=== PATIENT | female | born 1945 | race Caucasian/White ===

== ENCOUNTER 2017-12-20 14:38 | Emergency (ER) | payer MEDICARE, BC, SELFPAY ==
[2017-12-20 14:39] VITALS: BP 161/64; PULSE 99; RESP 22; TEMP 36.2; O2SAT 96; BMI 37.2
[2017-12-20 14:49] VITALS: BP 133/51; PULSE 91; RESP 16; O2SAT 95
[2017-12-20 14:51] VITALS: O2SAT 95
--- NOTE | 2017-12-20 15:17 | EKG12_ITS ---
Test Reason : SOB Blood Pressure : / mmHG Vent. Rate : 092 BPM Atrial Rate : 092 BPM P-R Int : 134 ms QRS Dur : 088 ms QT Int : 358 ms P-R-T Axes : 063 053 080 degrees QTc Int : 442 ms Normal sinus rhythm Possible Left atrial enlargement Borderline ECG Confirmed by LIDYA MARTIN, ESTRADA ([id number]), writer editor OMARI JUAREZ ([id number]) on 12/22/2017 3:13:57 PM Referred By: CARLOS Confirmed By:ESTRADA BOSE MD
--- NOTE | 2017-12-20 15:21 | ED.VISSUMM ---
- ER Visit Summary Date of Service: 12/20/17 Chief Complaint: Shortness of breath, weakness History of Present Illness: The patient is a 72 F reports 2-day history of generalized weakness and shortness of breath. She denies cough or congestion. She denies chest pain. She states she was up to urinate 6 times last night but denies dysuria. She does feel some abdominal bloating. She has small bowel movement this morning. She is complaining of headache. Patient recently was on a course of prednisone for knee swelling. She did do a taper off the medication. She was also recently on antibiotic for a kidney infection. Patient does not member the medication she was on. Patient is known to have history of hypothyroidism and states her thyroid meds were recently increased. Physical Examination: Blood pressure is 133/51, temperature 97.1, heart rate 91, respiratory rate 16, pulse ox 95% on room air. Patient is lying in bed with her eyes closed. She opens her eyes to voice. She is in no acute distress and speaking full sentences. Heart is regular rate and rhythm. Lung sounds are clear. Abdomen is soft and nontender. Active bowel sounds are noted. Neuro exam reveals no focal deficits. Test Results: CBC was a white count of 17.0 but differential is normal. This may be secondary to her recent steroids. Chemistry studies reveal BUN 27 and creatinine 1.27. Urinalysis shows 5-10 white cells with 2+ bacteria. TSH is normal. Troponin is less than 0.015. Two-view chest x-ray is no acute findings. Emergency Department Course and Treatment: Patient was given IV fluids, Zofran, and a small dose of Toradol. Patient was able to ambulate to the restroom and back without difficulty. I did explain to her that she does have epithelial cells in her urine sample, however she did have urinary frequency last night and has findings concerning for cystitis. She recently completed antibiotics for a kidney infection but cannot tell me what antibiotic she was on. She will be treated with 5-day course of Macrobid and urine culture has been sent. Treatment Plan: [] Disposition: Discharge Impression: Cystitis This note was generated with [employer] dictation software. It may contain incorrect words, spelling, and punctuation that were not noted in review of the chart prior to signing ED Disposition - Plan for ED Patient: Disposition: Home or Assisted Living Chief Complaint: Shortness of Breath Instructions: ED UTI Cystitis Female Prescriptions: Nitrofurantoin Macrocrystals [Macrobid] 100 mg PO Q12 #10 capsule Referrals: Artur Steven MD [Primary Care Provider] - Keep Winter appointment
[2017-12-20] MEDS: 0.9% Normal Saline 1,000 ML 150 ML IV (15:32)
[2017-12-20] MEDS: Ketorolac 15 MG/ML Vial IV (15:32)
[2017-12-20] MEDS: Ondansetron 4 MG/2 ML Vial IV (15:32)
--- NOTE | 2017-12-20 15:40 | RAD_ITS ---
STUDY: X-RAY CHEST REASON FOR EXAM: Female, 72 years old. Shortness of breath with weakness TECHNIQUE: PA and lateral views of the chest. COMPARISON: 11/06/2009 FINDINGS: The lungs are clear and expanded. There is no demonstrated pleural abnormality. Sternal cerclage wires are present from a prior sternotomy. Mild cardiomegaly. Artificial heart valve. Normal mediastinum and elzbieta. Normal visualized pulmonary arteries. There is atherosclerotic calcification of the aortic arch with tortuosity. Normal visualized thoracic spine. Normal visualized ribs, clavicles, and shoulders. There is no demonstrated abnormality of the visualized soft tissue structures of the upper abdomen. RAD/Chest PA and Lateral IMPRESSION: No acute findings Electronically Signed: Nik Covarrubias DO at 16:26 EDT Tel , Service support ,
[2017-12-20 15:48] LABS: Absolute Lymphocyte Count 4.13 X10^3/ul (0.83-4.51); Basophil# 0.02 X10^3/uL; Basophil% 0.1 % (0-1); Eosinophil# 0.14 X10^3/uL; Eosinophils% 0.8 % (0-5); Hematocrit 42.8 % (37-47); Hemoglobin 13.6 g/dl (12.0-15.0); Lymphocyte # 4.13 X10^3/ul (4.0); Lymphocyte % 24.3 % (19-41); Mean Corp Hgb Conc 31.8 g/gl (32-36); Mean Corpuscular Hgb 29.5 pg (27.0-32.0); Mean Corpuscular Volume 92.8 fL (81-99); Mean Platelet Vol. 10.4 fl (6.2-12.0); Monocyte# 1.65 X10^3/uL; Monocyte% 9.7 % (0-10); Neutrophil # 10.96 X10^3/uL (2.7-7.7); Neutrophil % 64.5 % (47-70); Platelet Count 184 K/mm3 (150-450); RBC Distribution Width CV 14.6 % (11.6-14.6); RBC Distribution Width SD 49.1 fl (35.1-43.9); Red Blood Count 4.61 M/mm3 (4.2-5.4)
[2017-12-20 15:50] LABS: Differential Indicated SCAN CRITERIA MET; POSITIVE COUNT NO; POSITIVE DIFFERENTIAL YES; POSITIVE MORPHOLOGY YES
[2017-12-20 16:07] LABS: Anion Gap 5 (5-15); BUN 27 mg/dL (7-18); BUN/Creat Ratio 21.3 RATIO (10-20); Calcium,Total 8.1 mg/dL (8.5-10.1); Chloride 108 mmol/L (98-107); Creatinine, Serum 1.27 mg/dL (0.55-1.02); EST Glomerular Filtration Rate 44 mL/min (>60); Est Glom Filt Rate - Afr Amer 53 mL/min (>60); Estimated Creatinine Clearance 36.93 ml/min; Glucose 115 mg/dL (74-106); Potassium 3.6 mmol/L (3.5-5.1); Sodium Level 141 mmol/L (136-145); Thyroid Stim Hormone (TSH) 2.92 uIU/mL (0.358-3.74)
[2017-12-20 16:28] LABS: Differential Comment SCANNED
[2017-12-20 17:02] VITALS: BP 153/71; PULSE 76; RESP 15; O2SAT 97
[2017-12-20 17:38] LABS: Color, Urine Yellow (Yellow); Glucose, Dipstick Normal (Normal); Ketone-Dipstick 5 mg/dl (Negative); Leukocyte Esterase-Dipstick 100 /ul (Negative); Nitrite-Dipstick Negative (Negative); Occult Blood-Urine 10 /ul (Negative); Protein-Dipstick 30 mg/dl (Negative); Specific Gravity, Urine 1.025 (1.002-1.030); Urine Clarity Clear (Clear); Urine Urobilinogen 4 mg/dl (Normal)
[2017-12-20 17:39] LABS: Urine Bilirubin Dipstick 1 mg/dL (Negative)
[2017-12-20 17:46] LABS: Bacteria 2+ /hpf (None Seen); Mucous, Urine 3+ /hpf (<or=2+); Red Blood Cells-Urine 0-5 SEEN /hpf (0-5); Squamous Epithelial Cells - UA 5-10 SEEN /hpf (5-10); White Blood Cells 5-10 SEEN /hpf (0-5)
--- NOTE | 2017-12-20 18:37 | ED.DEP ---
ED Disposition - Plan for ED Patient: Disposition: Home or Assisted Living Chief Complaint: Shortness of Breath Instructions: ED UTI Cystitis Female Prescriptions: Nitrofurantoin Macrocrystals [Macrobid] 100 mg PO Q12 #10 capsule Referrals: Artur Steven MD [Primary Care Provider] - Keep Winter appointment
[2017-12-20] MEDS: Nitrofurantoin Macrocrystals 100 MG Capsule PO (18:44)
--- NOTE | 2017-12-23 10:52 | CM.ED ---
ED CALLBACK: Follow-up call placed to patient. Patient states she is feeling better than the other day, but that my whole body just hurts and I'm so weak. Patient states she did see Dr. Steven on Friday. She tells me that he asked her to call him on Friday if she's not feeling improvement. Patient states she is taking her medication and resting. She denies any further questions or needs at this time. I encouraged patient to follow-up with Dr. Steven if no further improvement. Patient states understanding.
[2017-12-23 13:27] LABS: Pathologist Review Reviewed
== END 2017-12-20 18:45 | disposition home or self-care (01) ==
PROVIDERS: Emergency Provider Emergency Medicine; Family Provider Family Medicine; PCP Family Medicine
DX: N30.90 Cystitis, unspecified without hematuria (principal); I10 Essential (primary) hypertension; E03.9 Hypothyroidism, unspecified; R06.00 Dyspnea, unspecified; Z79.82 Long term (current) use of aspirin; Z79.899 Other long term (current) drug therapy
CPT/HCPCS: 71046; 80048; 81001; 84443; 84484; 85025; 93005; 96361; 96374; 96375; 99283; J7030; A4216; J2405

== ENCOUNTER 2019-03-15 15:51 | Outpatient (RCR) | payer SELFPAY ==
[2019-02-25 16:07] VITALS: BMI 37.2
== END 2019-03-23 23:59 ==
LOC: NS 15:51
PROVIDERS: Family Provider Family Medicine; PCP Family Medicine; Visit Provider Family Medicine
DX: Z71.3 Dietary counseling and surveillance (principal); E66.9 Obesity, unspecified; Z68.36 Body mass index [BMI] 36.0-36.9, adult
CPT/HCPCS: 97802

== ENCOUNTER 2019-04-13 11:30 | Outpatient (RCR) | payer SELFPAY ==
[2019-02-25 16:07] VITALS: BMI 37.2
== END 2019-04-23 23:59 ==
LOC: NS 11:30
PROVIDERS: Family Provider Family Medicine; PCP Family Medicine; Visit Provider Family Medicine
DX: Z71.3 Dietary counseling and surveillance (principal); E66.9 Obesity, unspecified; Z68.36 Body mass index [BMI] 36.0-36.9, adult
CPT/HCPCS: 97803

== ENCOUNTER 2019-05-18 15:00 | Outpatient (RCR) | payer SELFPAY ==
[2019-02-25 16:07] VITALS: BMI 37.2
== END 2019-05-22 23:59 ==
LOC: NS 15:00
PROVIDERS: Family Provider Family Medicine; PCP Family Medicine; Visit Provider Family Medicine
DX: Z71.3 Dietary counseling and surveillance (principal); E66.9 Obesity, unspecified; Z68.36 Body mass index [BMI] 36.0-36.9, adult
CPT/HCPCS: 97803

== ENCOUNTER 2019-06-15 13:30 | Outpatient (RCR) | payer SELFPAY ==
[2019-02-25 16:07] VITALS: BMI 37.2
== END 2019-06-22 23:59 ==
LOC: NS 13:30
PROVIDERS: Family Provider Family Medicine; PCP Family Medicine; Visit Provider Family Medicine
DX: Z71.3 Dietary counseling and surveillance (principal); E66.9 Obesity, unspecified; Z68.36 Body mass index [BMI] 36.0-36.9, adult
CPT/HCPCS: 97803

== ENCOUNTER 2019-07-14 11:00 | Outpatient (RCR) | payer SELFPAY ==
[2019-02-25 16:07] VITALS: BMI 37.2
== END 2019-07-22 23:59 ==
LOC: NS 11:00
PROVIDERS: Family Provider Family Medicine; PCP Family Medicine; Visit Provider Family Medicine
DX: Z71.3 Dietary counseling and surveillance (principal); E66.9 Obesity, unspecified; Z68.36 Body mass index [BMI] 36.0-36.9, adult
CPT/HCPCS: 97803

== ENCOUNTER 2019-08-04 11:10 | Outpatient (RCR) | payer SELFPAY ==
[2019-02-25 16:07] VITALS: BMI 37.2
== END 2019-08-04 23:59 | disposition home or self-care (01) ==
LOC: NS 11:10
PROVIDERS: Family Provider Family Medicine; PCP Family Medicine; Visit Provider Family Medicine
DX: Z71.3 Dietary counseling and surveillance (principal); E66.9 Obesity, unspecified; Z68.36 Body mass index [BMI] 36.0-36.9, adult
CPT/HCPCS: 97803

== ENCOUNTER 2022-05-11 19:10 | Inpatient (IN) | payer MEDICARE, BC, SELFPAY ==
[2022-05-11] VITALS (8 sets, daily range): BP systolic 109–143; BP diastolic 54–89; PULSE 66–77; RESP 17–22; TEMP 36–36.7; O2SAT 96–100; BMI 37.0
--- NOTE | 2022-05-11 19:44 | EKG12_ITS ---
Test Reason : CP Blood Pressure : / mmHG Vent. Rate : 077 BPM Atrial Rate : 077 BPM P-R Int : 140 ms QRS Dur : 090 ms QT Int : 390 ms P-R-T Axes : 053 007 080 degrees QTc Int : 441 ms Normal sinus rhythm Normal ECG Confirmed by ANGELA MARTIN, DARLENE ([id number]), online content editor ASAD AGUILAR ([id number]) on 05/13/2022 2:02:27 PM Referred By: KENNY/СЕРГЕЙ Confirmed By:DARLENE MILLER MD
[2022-05-11] MEDS: Aspirin 81 MG TAB.CHEW 324 MG PO (20:01)
--- NOTE | 2022-05-11 20:02 | ED.RN ---
PER DR. CXO, DECREASE ASPIRIN DOSE TO 243 MG DUE TO PT TAKING 81 MG ASPIRIN DAILY IN THE MORNING.
[2022-05-11 20:20] LABS: Absolute Lymphocyte Count 6.58 X10^3/uL (0.83-4.51); Absolute Neutrophil Count 7.2 X10^3/uL (2.0-7.7); Basophil# 0.09 X10^3/uL; Basophil% 0.6 % (0-1); Eosinophil# 0.19 X10^3/uL; Eosinophils% 1.3 % (0-5); Hematocrit 37.6 % (37-47); Hemoglobin 11.9 g/dL (12.0-15.0); Lymphocyte # 6.58 X10^3/ul (0.83-4.51); Lymphocyte % 44.3 % (19-41); Mean Corp Hgb Conc 31.6 g/dL (32-36); Mean Corpuscular Hgb 28.1 pg (27.0-32.0); Mean Corpuscular Volume 88.7 fL (81-99); Mean Platelet Vol. 10.9 fl (6.2-12.0); Monocyte# 0.77 X10^3/uL; Monocyte% 5.2 % (0-10); NRBC Flagged by Analyzer 0 % (0-5); Neutrophil # 7.18 X10^3/uL (2.7-7.7); Neutrophil % 48.3 % (47-70); POSITIVE DIFFERENTIAL YES; POSITIVE MORPHOLOGY YES; Platelet Count 264 K/mm3 (150-450); RBC Distribution Width CV 13.8 % (11.6-14.6); RBC Distribution Width SD 44.5 fl (35.1-43.9); Red Blood Count 4.24 M/mm3 (4.2-5.4); White Blood Count 14.9 K/mm3 (4.4-11.0)
[2022-05-11 20:40] LABS: Anion Gap 9 (5-15); BUN 27 mg/dL (7-18); BUN/Creat Ratio 18.9 RATIO (10-20); Calcium,Total 9.4 mg/dL (8.5-10.1); Chloride 108 mmol/L (98-107); Creatinine, Serum 1.43 mg/dL (0.55-1.02); Differential Indicated SCAN CRITERIA MET; EST Glomerular Filtration Rate 38 mL/min (>60); Est Glom Filt Rate - Afr Amer 46 mL/min (>60); Estimated Creatinine Clearance 30.84 ml/min; Glucose 133 mg/dL (74-106); Potassium 3.8 mmol/L (3.5-5.1); Sodium Level 140 mmol/L (136-145); Troponin-I HS (w/2H Reflex) 7 pg/mL (3.0-54.0)
[2022-05-11 20:50] LABS: Differential Comment SCANNED; Reactive Lymphocyte RARE
--- NOTE | 2022-05-11 21:20 | ED.VIS.CHEST ---
HPI History of Present Illness Chief Complaint: Chest Pain Informant: patient Onset/Context/Timing Onset: Today and Hours (1) Activity at onset: sudden Timing: Continuous Quality: Positive for Heaviness Location: Substernal, Right Parasternal, Left Parasternal, Right Chest and Left Chest Worsened By: Nothing Relieved By: NTG Associated Symptoms: Positive for Diaphoresis, Dyspnea and Lightheadedness; Negative for Nausea, Vomiting, Cough, Fever, Acid Reflux or Palpitations Narrative Narrative: Patient presents with chest pain that began approximately 1 hour prior to arrival. Patient states she was shopping at [employer] when the pain began. Patient states she was just walking when the pain began. Patient describes it as a heaviness. Patient states it got worse when she went to check out. Patient took 1 sublingual nitroglycerin which helped. Patient states nothing makes it worse. Patient admits to some shortness of breath and diaphoresis with the pain. Patient also admits to some lightheadedness. Patient states the pain was diffuse across her chest. Patient denies any fevers or chills. Patient states the pain does radiate into her neck and back. Patient also admits to a mild headache. CVD Risk Factors: Positive for Hypertension and Family History 1' </=55; Negative for Diabetes, Hypercholesterolemia or Smoking PE Risk Factors: Positive for Recent Travel/Surgery; Negative for Recent Immobilization, Prior DVT or PE, Cancer or OCP + Smoking + >/=35 [facility] Medical History Arthritis Heart disease Hypertension Hyperthyroidism Hypothyroidism Home Medications aspirin 81 mg chewable tablet 81 mg PO DAILY@0800 12/27/13 [History Last Taken 12/28/13] levothyroxine 75 mcg tablet 75 mcg PO DAILY 12/27/13 [History Last Taken 05/02/15 05:00] metoprolol tartrate 25 mg tablet 25 mg PO DAILY 12/27/13 [History Last Taken 05/02/15 05:00] nitrofurantoin monohydrate/macrocrystals 100 mg capsule 100 mg PO Q12 ##10 12/20/17 [Rx Last Taken Unknown] amlodipine 5 mg tablet 5 mg PO DAILY 05/11/22 [History Last Taken Unknown] gabapentin 100 mg capsule 100 mg PO DAILY 05/11/22 [History Last Taken Unknown] omeprazole 20 mg capsule,delayed release 20 mg PO DAILY 05/11/22 [History Last Taken Unknown] Allergy/AdvReac Type Severity Reaction Status Date / Time amoxicillin [Amoxicillin] Allergy Unknown Verified 12/20/17 14:39 codeine Allergy Nausea Verified 12/20/17 14:39 Penicillins Allergy Hives Verified 12/20/17 14:39 Family History Other Thyroid disorder Surgical History History of cholecystectomy History of hysterectomy Status post transcatheter aortic valve replacement Social History Smoking Status: Never smoker alcohol intake: never substance use type: does not use what type of physical activity do you participate in: walking frequency: 1-2 times per week ROS ROS ED Constitutional Constitutional ED: Denies chills or fever(s) Eyes Eyes: Denies blurry vision or change in vision ENT ENT ED: Denies rhinorrhea or sore throat Cardiovascular Cardiovascular: Reports chest pain; Denies palpitations Respiratory/Chest Respiratory/Chest: Reports dyspnea; Denies cough Gastrointestinal Gastrointestinal: Denies abdominal pain, nausea or vomiting Genitourinary Genitourinary ED: Denies dysuria or hematuria Musculoskeletal Musculoskeletal: Reports back pain and neck pain Integumentary Denies abscess or rash Neurologic Neurologic: Reports headache(s); Denies weakness Allergic/Immunologic Allergic/Immunologic ED: Denies mouth swelling or urticaria EXAM Physical Exam Const Vital Signs: 05/11/22 19:11 05/11/22 19:14 05/11/22 19:14 Temperature 96.8 F L Temperature Source Temporal Pulse Rate 77 Respiratory Rate 18 Respiratory Effort Normal Non-Labored Blood Pressure 124/68 H Blood Pressure Mean 86 Pulse Ox 96 Oxygen Delivery Method Room Air 05/11/22 19:53 05/11/22 20:15 05/11/22 21:30 Temperature Temperature Source Pulse Rate 71 73 66 Respiratory Rate 21 H 18 22 H Respiratory Effort Blood Pressure 128/57 H 109/54 L 119/61 Blood Pressure Mean 80 72 80 Pulse Ox 98 97 97 Oxygen Delivery Method Room Air Room Air Room Air 05/11/22 22:06 Temperature Temperature Source Pulse Rate 72 Respiratory Rate 20 H Respiratory Effort Blood Pressure 129/57 H Blood Pressure Mean 81 Pulse Ox 98 Oxygen Delivery Method Room Air Positive well nourished, well developed and obese General Appearance ED: well developed and NAD Nutritional Appearance: obese HEENT normocephalic and atraumatic Eyes PERRL and EOMs intact bilaterally Neck supple and no JVD Chest Wall palpation of chest normal Resp normal respiratory effort and clear to auscultation bilaterally Effort and Inspection: Negative for respiratory distress Cardio regular rate and regular rhythm GI normal to inspection, nondistended, normoactive bowel sounds, soft to palpation, non-tender and non-distended Extremity normal to inspection General Extremety ED: Negative for edema or tenderness General Extremity: Negative for edema Neuro oriented x3, CN's II-XII intact bilaterally and no sensory deficits noted Sensorium / Orientation: awake and alert Motor Exam: strength 5/5 throughout Psych mental status grossly normal Heart Score History: Moderately Suspicious ECG: Normal Age: >/= 65 years Risk Factors: 1 or 2 Risk Factors Troponin: </= Normal Limit Score: 4 MDM MDM MDM Narrative Medical decision making narrative: Differential diagnosis includes cardiac ischemia, cardiac dysrhythmia, pneumonia, pneumothorax, pulmonary embolism, aortic dissection, and musculoskeletal chest pain. EKG will be obtained to assess for cardiac ischemia and cardiac dysrhythmia. CTA of the chest will be obtained to assess for pulmonary embolism and aortic dissection. CBC will be obtained to assess for leukocytosis and anemia. Basic metabolic profile will be obtained to assess for electrolyte abnormality and renal function. High-sensitivity troponin will be obtained to assess for cardiac ischemia. Lab Data Lab results narrative: CBC was reviewed. There is a leukocytosis of 14.9. There is a mild anemia with a hemoglobin of 11.9. Basic metabolic profile was reviewed. Creatinine was slightly elevated at 1.43. This is mildly increased compared to previous outpatient studies. BUN was slightly elevated at 27. This was consistent with prior outpatient laboratory studies. High-sensitivity troponin was reviewed and was normal at 7. 2-hour repeat high-sensitivity troponin was also normal at 7. Labs: Laboratory Results - last 24 hr 05/11/22 05/11/22 05/11/22 19:00 19:00 21:21 WBC 14.9 H RBC 4.24 Hgb 11.9 L Hct 37.6 MCV 88.7 MCH 28.1 MCHC 31.6 L RDW Std Deviation 44.5 H RDW Coeff of Gopi 13.8 Plt Count 264 MPV 10.9 Immature Gran % (Auto) 0.300 Neut % (Auto) 48.3 Lymph % (Auto) 44.3 H Geary % (Auto) 5.2 Eos % (Auto) 1.3 Baso % (Auto) 0.6 Absolute Neuts (auto) 7.2 Absolute Lymphs (auto) 6.58 H Nucleated RBC % 0 Differential Comment SCANNED Reactive Lymphocytes RARE Sodium 140 Potassium 3.8 Chloride 108 H Carbon Dioxide 23.0 Anion Gap 9 BUN 27 H Creatinine 1.43 H Estim Creat Clear Calc 30.84 Est GFR (MDRD) Af Amer 46 L Est GFR (MDRD) Non-Af 38 L BUN/Creatinine Ratio 18.9 Glucose 133 H Calcium 9.4 Troponin I High Sens 7 7 Radiography Diagnostic Testing: Clinical Impression(s) from Imaging Studies Chest CTA 05/11/22 21:50 IMPRESSION: Negative for PE. Previous median sternotomy with surgical repair of ascending thoracic aortic aneurysm. Fusiform dilatation of the distal ascending thoracic aorta, aortic arch and descending thoracic aorta, with endoluminal stent in place. No evidence for leakage. Findings of mild pulmonary emphysema and minimal bronchitis. No pneumonia. Electronically Signed: Phillip Monsalve MD at 22:25 EST , EKG Initial EKG: Attestation: I personally reviewed and interpreted this EKG as follows: Interpretation: Sinus Rhythm (77) and No Acute Injury Pattern Comments: EKG was obtained. On my independent interpretation, it showed a normal sinus rhythm with a rate of 77. SD interval, QRS interval, and QTc intervals were all normal. [place] was normal. There are no acute ST or T wave changes. Prior EKG tracings: available for review Prior: Unchanged (12/20/2017) Treatment and Re-Evaluation Narrative: Patient was given aspirin here. Patient is pain-free at this time. Patient has a HEART score of 4. Patient states it has been at least 3 years since her last stress test. Because of this, I feel the patient would benefit from admission to the hospital for observation and further cardiac evaluation. Case was discussed with the hospitalist. She will admit the patient to the hospital. Patient understood and was agreeable with the plan. All questions were answered. Discharge Plan Triage Chief Complaint: Chest Pain ED Provider: Kelton Cassidy Dx/Rx/DC Orders Clinical Impression: Chest pain, Hypertension, Hypothyroidism Prescriptions: No Action levothyroxine 75 MCG tablet 75 mcg PO DAILY aspirin 81 MG tablet,chewable 81 mg PO DAILY@0800 metoprolol tartrate 25 MG tablet 25 mg PO DAILY nitrofurantoin monohyd/m-cryst 100 MG capsule 100 mg PO Q12 Qty: 10 0RF amlodipine 5 mg tablet 5 mg PO DAILY Label Comments: TAKE 1 & 1/2 (ONE & ONE-HALF) TABLETS BY MOUTH ONCE DAILY omeprazole 20 mg capsule,delayed release(DR/EC) 20 mg PO DAILY Label Comments: TAKE 1 CAPSULE BY MOUTH ONCE DAILY 30 MINUTES BEFORE BREAKFAST gabapentin 100 mg capsule 100 mg PO DAILY Label Comments: TAKE 1 CAPSULE BY MOUTH EVERY 8 HOURS Primary Care Provider: Artur Steven Referrals: Artur Steven MD [Primary Care Provider] - Disposition Disposition: Acute Care Hospital [facility]
[2022-05-11] MEDS: 0.9% Normal Saline 1,000 ML 1000 ML IV (21:34)
--- NOTE | 2022-05-11 21:50 | CT_ITS ---
EXAM: CT ANGIOGRAPHY CHEST WITHOUT AND WITH INTRAVENOUS CONTRAST CLINICAL INDICATION: Pulmonary embolism TECHNIQUE: Helically acquired angiography images were obtained of the chest without and with intravenous contrast. This CT exam was performed using one or more of the following dose reduction techniques: automated exposure control, adjustment of the mA and/or kV according to patient size, and/or use of iterative reconstruction technique. This report was created using [employer] report generation technology. MIP reconstructed images were created and reviewed. CONTRAST: IV 100mL [id number] RADIATION DOSE: Total DLP: 526.46 mGy-cm. COMPARISON: Chest radiographs of 12/20/2017. FINDINGS: PULMONARY ARTERIES: Unremarkable. Normal in caliber. No evidence of pulmonary embolism. AORTA: Left-sided aortic arch is present. There is been previous repair of ascending thoracic aortic aneurysm; the proximal-mid ascending thoracic aorta is normal in caliber. There is fusiform dilatation of the distal ascending thoracic aorta, aortic arch and descending thoracic aorta, with endovascular stent in place within the dilated segments. The distal ascending thoracic aorta measures 4.9 cm in transverse diameter. The mid aortic arch measures 4 cm in transverse diameter. Proximal descending thoracic aorta measures 4.8 cm in transverse diameter. The abdominal aorta is calcific and normal in caliber. No evidence of acute dissection. 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 LUNGS AND PLEURAL SPACES: Mild pulmonary emphysema. Minimal peribronchial cuffing indicating bronchial wall inflammation. Compressive atelectasis adjacent to the descending thoracic aorta. No patchy pneumonia. No groundglass opacities. No pleural effusion. No mass. HEART: Moderate coronary artery calcification. No significant pericardial effusion. Prosthetic aortic valve. MEDIASTINUM: Borderline enlarged precarinal node measuring 10 mm in short axis diameter. No hilar or mediastinal adenopathy. Esophagus is unremarkable. No hiatal hernia. THYROID: Unremarkable. No thyroid lesions. BONES/JOINTS: Previous median sternotomy. Mildly accentuated thoracic kyphosis. Thoracic degenerative spurring. No thoracic wedge compression fracture. No suspicious lytic or blastic abnormality. LYMPH NODES: Right axillary surgical clips. No axillary adenopathy. INTRAPERITONEAL SPACE: Visualized liver, spleen, adrenal glands, renal upper poles and pancreas are unremarkable. Gallbladder is not visualized. No pneumoperitoneum is noted. CT/CTA Chest W/WO Contrast IMPRESSION: Negative for PE. Previous median sternotomy with surgical repair of ascending thoracic aortic aneurysm. Fusiform dilatation of the distal ascending thoracic aorta, aortic arch and descending thoracic aorta, with endoluminal stent in place. No evidence for leakage. Findings of mild pulmonary emphysema and minimal bronchitis. No pneumonia. Electronically Signed: Phillip Monsalve MD at 22:25 EST ,
[2022-05-11 22:16] LABS: Reflex Troponin-HS? (from REC) Y
[2022-05-11 22:34] LABS: Troponin-I HS 7 pg/mL (3.0-54.0)
--- NOTE | 2022-05-11 22:54 | ED.RN ---
PER DR. COX, PT OKAY TO EAT OF 2253.
--- NOTE | 2022-05-11 23:21 | HP.PCM.HOS_ITS ---
HPI - General General Date of Admission: 05/11/22 Date of Service: 05/11/22 Chief Complaint: Chest pain HPI Narrative SHERRY DANIELLE, is a 76 F with a past medical history of 3 aneurysm repairs most recent abdominal aneurysm in May 2021, and hypothyroidism who presented to [facility] 05/11/2022 with an episode of chest pain. She began having pain at 7 PM that was in her upper chest and resolved with nitro and presented to the ED. In the ED she was loaded with aspirin and received IV fluid. Troponin negative x2 and EKG no significant ST changes. She did have a CTA which did not show PE. Heart score was calculated at 4 and hospitalist consulted for admission. Patient seen and evaluated with family at bedside. She endorses she was walking at [facility] earlier this evening and began having pain that was across the upper parts of her chest and was somewhat of a aching and heavy pain and she felt like she was slightly sweaty and short of breath this lasted for 15 minutes. It had gone away with nitroglycerin. Is never had this pain before and the stress test was 4 years ago. She denies any other complaints recently or at this time. [facility] Medical History Arthritis Heart disease Hypertension Hyperthyroidism Hypothyroidism Home Medications aspirin 81 mg chewable tablet 81 mg PO DAILY@0800 12/27/13 [History Last Taken 12/28/13] levothyroxine 75 mcg tablet 75 mcg PO DAILY 12/27/13 [History Last Taken 05/02/15 05:00] metoprolol tartrate 25 mg tablet 25 mg PO DAILY 12/27/13 [History Last Taken 05/02/15 05:00] nitrofurantoin monohydrate/macrocrystals 100 mg capsule 100 mg PO Q12 ##10 12/20/17 [Rx Last Taken Unknown] amlodipine 5 mg tablet 5 mg PO DAILY 05/11/22 [History Last Taken Unknown] gabapentin 100 mg capsule 100 mg PO DAILY 05/11/22 [History Last Taken Unknown] omeprazole 20 mg capsule,delayed release 20 mg PO DAILY 05/11/22 [History Last Taken Unknown] Allergy/AdvReac Type Severity Reaction Status Date / Time amoxicillin [Amoxicillin] Allergy Unknown Verified 12/20/17 14:39 codeine Allergy Nausea Verified 12/20/17 14:39 Penicillins Allergy Hives Verified 12/20/17 14:39 Family History Other Thyroid disorder Surgical History History of cholecystectomy History of hysterectomy Status post transcatheter aortic valve replacement Social History Smoking Status: Never smoker alcohol intake: never substance use type: does not use what type of physical activity do you participate in: walking frequency: 1-2 times per week ROS ROS Narrative General: Denies fever or chills, denies weight change HENT: Denies headache, denies stuffy nose, denies sore throat EYES: Denies changes in vision Resp: Denies cough, shortness of breath resolved Cardiac: Chest pain resolved GI: Denies abdominal pain, denies changes in bowel, denies nausea, denies vomiting : Denies changes in urination Extremity: Denies swelling MSK: Denies weakness Neuro: Denies any numbness, denies tingling Heme: Denies any bleeding or bruising Skin: Denies rashes Psychiatric: No complaints voiced Vital Signs Vital Signs Vital Signs: 05/11/22 19:11 05/11/22 19:14 05/11/22 19:14 Temperature 96.8 F L Temperature Source Temporal Pulse Rate 77 Respiratory Rate 18 Respiratory Effort Normal Non-Labored Blood Pressure 124/68 H Blood Pressure Mean 86 Pulse Ox 96 Oxygen Delivery Method Room Air 05/11/22 19:53 05/11/22 20:15 05/11/22 21:30 Temperature Temperature Source Pulse Rate 71 73 66 Respiratory Rate 21 H 18 22 H Respiratory Effort Blood Pressure 128/57 H 109/54 L 119/61 Blood Pressure Mean 80 72 80 Pulse Ox 98 97 97 Oxygen Delivery Method Room Air Room Air Room Air 05/11/22 22:06 05/11/22 22:51 Temperature 98.0 F Temperature Source Oral Pulse Rate 72 67 Respiratory Rate 20 H 17 Respiratory Effort Blood Pressure 129/57 H 143/89 H Blood Pressure Mean 81 107 Pulse Ox 98 100 Oxygen Delivery Method Room Air Room Air Weight Weight: 104.2 kg Body Mass Index (BMI) 37.0 Physical Exam Narrative General: Alert, oriented, no apparent distress HEENT: Atraumatic, normocephalic Eyes: Anicteric, normal conjunctiva, extraocular movements grossly intact Neck: Supple Respiratory: Clear to auscultation bilaterally, normal respiratory effort Cardiovascular: Regular rate and rhythm, ejection murmur heard best at left upper sternal border, did report she has been told she had a murmur before years prior GI: Soft, nontender, nondistended, does have small hernia appreciable when coughing but is easily reduced Extremities: No edema Musculoskeletal: Moving all extremities Neuro: No overt focal neurological deficits Skin: No rashes appreciated Psych: Cooperative Results Lab / Micro Data Result Diagrams: 05/11/22 19:00 05/11/22 19:00 Labs: Laboratory Results - last 24 hr 05/11/22 19:00: WBC 14.9 H, RBC 4.24, Hgb 11.9 L, Hct 37.6, MCV 88.7, MCH 28.1, MCHC 31.6 L, RDW Std Deviation 44.5 H, RDW Coeff of Gopi 13.8, Plt Count 264, MPV 10.9, Immature Gran % (Auto) 0.300, Neut % (Auto) 48.3, Lymph % (Auto) 44.3 H, [place] % (Auto) 5.2, Eos % (Auto) 1.3, Baso % (Auto) 0.6, Absolute Neuts (auto) 7.2, Absolute Lymphs (auto) 6.58 H, Nucleated RBC % 0, Differential Comment SCANNED, Reactive Lymphocytes RARE 05/11/22 19:00: Sodium 140, Potassium 3.8, Chloride 108 H, Carbon Dioxide 23.0, Anion Gap 9, BUN 27 H, Creatinine 1.43 H, Estim Creat Clear Calc 30.84, Est GFR (MDRD) Af Amer 46 L, Est GFR (MDRD) Non-Af 38 L, BUN/Creatinine Ratio 18.9, Glucose 133 H, Calcium 9.4, Troponin I High Sens 7 05/11/22 21:21: Troponin I High Sens 7 Radiology Impression Chest CTA 05/11/22 21:50 IMPRESSION: Negative for PE. Previous median sternotomy with surgical repair of ascending thoracic aortic aneurysm. Fusiform dilatation of the distal ascending thoracic aorta, aortic arch and descending thoracic aorta, with endoluminal stent in place. No evidence for leakage. Findings of mild pulmonary emphysema and minimal bronchitis. No pneumonia. Electronically Signed: Phillip Monsalve MD at 22:25 EST , Assessment & Plan Assessment/Plan (1) Chest pain: (2) Hypothyroidism: (3) Hypertension: PLAN: Plan #Atypical chest pain -Pain was if anything in upper part of chest but was relieved with nitroglycerin she did have several associated symptoms -Admit to telemetry -Heart score is 4 and warrants further evaluation despite no significant ST changes on EKG and troponins negative x2 -CTA negative for PE -Loaded with aspirin in ED, continue aspirin, started on statin -Lipid panel in the a.m. -Given murmur have also obtained echo -Made patient n.p.o. at midnight for stress test in a.m. #CKD 3 unclear subtype -Has creatinine of 1.43 but last check was 1.27 in 2018 Did receive hydration in ED, trend BMP in the a.m. #Hypothyroidism -Continue Synthroid -We will check TSH in the a.m. #DVT ppx: SCDs, heparin Faith Redmond MD Time spent in the patient's overall evaluation,decision-making process, review of diagnostic data, adjustment of management, discussion with other providers, nursing nursing and ancillary staff involved in patient's care documentation, 60 minutes Charges/Coding Visit Charges Inpatient E&M: 30731 Init Hosp L2
[2022-05-12] VITALS (8 sets, daily range): BP systolic 143–154; BP diastolic 53–89; PULSE 69–77; RESP 16–18; TEMP 36.5–36.6; O2SAT 94–99; BMI 35.6
--- NOTE | 2022-05-12 00:43 | ECHOD_ITS ---
Reason For Study: CHEST PAIN Procedure This was a 2D Doppler, Color Flow transthoracic echocardiogram. Exam performed in department. Left Ventricle Normal LV size. Left ventricular systolic function is normal. The estimated ejection fraction is 60 %. Stage 1 diastolic dysfunction. Right Ventricle Normal RV size. Normal systolic function. Atria Normal left atrium. Normal right atrium. Mitral Valve There is moderate mitral annular calcification. Tricuspid Valve Normal tricuspid valve. Mild (1+) tricuspid valve insufficiency. Pulmonary artery systolic pressure is 41 mmHg. Aortic Valve Bioprosthetic aortic valve. Pulmonic Valve Normal pulmonic valve. Great Vessels Normal aortic root. The pulmonary artery is normal size. Normal inferior vena cava. Pericardium/Pleural No pericardial effusion. MMode/2D Measurements & Calculations LVIDd: 3.7 cm IVSd: 1.1 cm LVOT diam: 2.0 cm LVIDs: 2.1 cm LVPWd: 1.3 cm LVOT area: 3.0 cm2 FS: 44.5 % Ao root diam: 3.4 cm LAV(MOD-sp4): 37.4 ml LVAd ap4: 18.3 cm2 LVLd ap4: 6.4 cm EDV(MOD-sp4): 42.7 ml EDV(sp4-el): 44.0 ml LVAs ap4: 9.3 cm2 LVLs ap4: 5.3 cm ESV(MOD-sp4): 13.3 ml ESV(sp4-el): 13.9 ml EF(MOD-sp4): 68.9 % EF(sp4-el): 68.4 % SV(MOD-sp4): 29.4 ml SV(sp4-el): 30.1 ml LA A4 area: 15.0 cm2 LA dimension(2D): 4.5 cm RA A4 area: 13.4 cm2 Time Measurements MV dec time: 0.31 sec Doppler Measurements & Calculations MV E max akil: 76.3 cm/sec Lat Peak E' Akil: 8.9 cm/sec Med Peak E' Akil: 5.8 cm/sec MV A max akil: 99.0 cm/sec E/E' lat: 8.5 E/E' med: 13.2 MV E/A: 0.77 MV V2 max: 94.8 cm/sec Ao V2 max: 121.9 cm/sec MV max P.6 mmHg MV dec slope: 246.2 cm/sec2 Ao max P.5 mmHg MV V2 mean: 52.9 cm/sec Ao V2 mean: 88.9 cm/sec MV mean P.3 mmHg Ao mean P.8 mmHg MV V2 VTI: 25.6 cm Ao V2 VTI: 26.3 cm AV (velocity ratio): 0.61 MVA(VTI): 1.9 cm2 ARVIN(I,D): 1.8 cm2 ARVIN(V,D): 2.1 cm2 LV V1 max: 86.5 cm/sec SV(LVOT): 48.3 ml PA V2 max: 106.4 cm/sec LV V1 max P.0 mmHg PA V2 mean: 68.3 cm/sec LV V1 mean P.4 mmHg LV V1 mean: 54.8 cm/sec LV V1 VTI: 16.1 cm TR max akil: 309.9 cm/sec TR max P.4 mmHg ECHO/Echo Complete Interpretation Summary Normal LV size. Left ventricular systolic function is normal. Pulmonary artery systolic pressure is 41 mmHg. The estimated ejection fraction is 60 %. Stage 1 diastolic dysfunction. Bioprosthetic aortic valve. Ordering Physician: Faith Redmond Referring Physician: MD Maurizio Artur Performed By: Karyn Tavarez RCS
--- NOTE | 2022-05-12 00:43 | EKG12_ITS ---
Test Reason : CP Blood Pressure : / mmHG Vent. Rate : 064 BPM Atrial Rate : 064 BPM P-R Int : 190 ms QRS Dur : 090 ms QT Int : 424 ms P-R-T Axes : 056 012 082 degrees QTc Int : 437 ms Normal sinus rhythm with sinus arrhythmia Normal ECG When compared with ECG of 12-MAY-2022 01:05, MANUAL COMPARISON REQUIRED, DATA IS UNCONFIRMED Confirmed by ANGELA MARTIN, DARLENE ([id number]), editor in chief newspaper ASAD AGUILAR ([id number]) on 05/14/2022 11:08:08 AM Referred By: Confirmed By:DARLENE MILLER MD
[2022-05-12 02:07] LABS: Troponin-I HS 6 pg/mL (3.0-54.0)
[2022-05-12] MEDS: Pramipexole Di-HCl 0.5 MG Tablet PO (04:03)
[2022-05-12] MEDS: Levothyroxine 75 MCG Tablet PO (04:03)
[2022-05-12 07:14] LABS: Absolute Lymphocyte Count 3.91 X10^3/uL (0.83-4.51); Basophil# 0.04 X10^3/uL; Basophil% 0.4 % (0-1); Eosinophil# 0.16 X10^3/uL; Eosinophils% 1.5 % (0-5); Hemoglobin 10.8 g/dL (12.0-15.0); Lymphocyte # 3.91 X10^3/ul (0.83-4.51); Lymphocyte % 35.8 % (19-41); Mean Corp Hgb Conc 30.9 g/dL (32-36); Mean Corpuscular Hgb 27.8 pg (27.0-32.0); Mean Platelet Vol. 10.7 fl (6.2-12.0); Monocyte# 0.77 X10^3/uL; Monocyte% 7.1 % (0-10); NRBC Flagged by Analyzer 0 % (0-5); Neutrophil # 5.97 X10^3/uL (2.7-7.7); Neutrophil % 54.7 % (47-70); Platelet Count 202 K/mm3 (150-450); RBC Distribution Width CV 13.9 % (11.6-14.6); RBC Distribution Width SD 45.2 fl (35.1-43.9); Red Blood Count 3.89 M/mm3 (4.2-5.4); White Blood Count 10.9 K/mm3 (4.4-11.0)
[2022-05-12 07:47] LABS: ALB/GLOB Ratio 0.6 RATIO (0.9-2.4); AST(SGOT) 11 U/L (15-37); Alanine Aminotransfer ALT/SGPT 11 U/L (13-56); Alkaline Phosphatase 72 U/L (45-117); Anion Gap 7 (5-15); BUN 27 mg/dL (7-18); BUN/Creat Ratio 23.1 RATIO (10-20); Calcium,Total 8.7 mg/dL (8.5-10.1); Chloride 112 mmol/L (98-107); Cholesterol 158 mg/dL (200); Creatinine, Serum 1.17 mg/dL (0.55-1.02); EST Glomerular Filtration Rate 48 mL/min (>60); Est Glom Filt Rate - Afr Amer 58 mL/min (>60); Globulin 4.7 g/dL (2.2-4.2); Glucose 99 mg/dL (74-106); High Density Lipoprotein 46 mg/dL; Potassium 4.2 mmol/L (3.5-5.1); Protein, Total 7.7 g/dL (6.4-8.2); Sodium Level 141 mmol/L (136-145); Thyroid Stim Hormone (TSH) 2.66 uIU/mL (0.358-3.74); Triglycerides 90 mg/dL; Very Low Density Lipoprotein 18 mg/dL (5-40)
[2022-05-12 08:13] LABS: International Normalized Ratio 1.2; Prothrombin Time (Protime)PT. 14.8 SECONDS (11.7-14.9)
[2022-05-12] MEDS: Metoprolol Tartrate 25 MG Tablet PO (08:21)
[2022-05-12] MEDS: Gabapentin 100 MG Capsule PO (08:21)
[2022-05-12] MEDS: Aspirin 81 MG TAB.CHEW PO (08:21)
[2022-05-12] MEDS: amLODIPine 5 MG Tablet PO (08:22)
[2022-05-12] MEDS: Pantoprazole Sodium 20 MG Tablet PO (08:22)
--- NOTE | 2022-05-12 10:34 | DCINST_ITS ---
Discharge Instructions Diet Discharge Diet: Low fat / Low cholesterol Activity Discharge Activity: Return to Normal Activity Dressing / Incision Call your doctor if you observe: Fever of 101 or Higher, Shortness of breath, Dizziness, Fainting spells, Swelling in the ankles, Chest pain and Increased palpitations (irregular heartbeat) Follow Up Care Test Results: Test results from this visit will be discussed in further detail at your follow- up appointment, if applicable. Discharge Plan Admission Admit Date/Time: 05/11/22 23:20 Attending Provider: Lorenzo Gabriel Primary Care Provider: Artur Steven Consulting Providers: Faith Redmond Discharge Orders/Prescriptions Prescriptions: New atorvastatin 40 mg Tablet 40 mg PO QHS 30 Days Qty: 30 0RF Continued levothyroxine 75 MCG tablet 75 mcg PO DAILY aspirin 81 MG tablet,chewable 81 mg PO DAILY@0800 metoprolol tartrate 25 MG tablet 25 mg PO DAILY amlodipine 5 mg tablet 5 mg PO DAILY Label Comments: TAKE 1 & 1/2 (ONE & ONE-HALF) TABLETS BY MOUTH ONCE DAILY omeprazole 20 mg capsule,delayed release(DR/EC) 20 mg PO DAILY Label Comments: TAKE 1 CAPSULE BY MOUTH ONCE DAILY 30 MINUTES BEFORE BREAKFAST gabapentin 100 mg capsule 100 mg PO DAILY Label Comments: TAKE 1 CAPSULE BY MOUTH EVERY 8 HOURS ropinirole 1 mg tablet 1 mg PO QHS PRN (Reason: Restless Leg(S)) Label Comments: TAKE 1 TABLET BY MOUTH NIGHTLY NEEDED FOR RESTLESS LEGS Referrals / Follow Up: Artur Steven MD [Primary Care Provider] - Within 1 Week Disposition Disposition (needs filled in before D/C Order can be placed): Home, Self Care
--- NOTE | 2022-05-12 10:37 | PCM.DC.SUM ---
Providers Date of Admission: 05/11/22 Primary Care Physician: Dr. Artur Steven MD Reason For Visit: CHEST PAIN Diagnosis Discharge Diagnosis (1) Chest pain: Status: Acute Code(s): R07.9 - Chest pain, unspecified (2) Hypothyroidism: Status: Acute Code(s): E03.9 - Hypothyroidism, unspecified (3) Hypertension: Status: Chronic Code(s): I10 - Essential (primary) hypertension Medications at Discharge Home Medications aspirin 81 mg chewable tablet 81 mg PO DAILY@0800 12/27/13 levothyroxine 75 mcg tablet 75 mcg PO DAILY 12/27/13 metoprolol tartrate 25 mg tablet 25 mg PO DAILY 12/27/13 amlodipine 5 mg tablet 5 mg PO DAILY 05/11/22 gabapentin 100 mg capsule 100 mg PO DAILY 05/11/22 omeprazole 20 mg capsule,delayed release 20 mg PO DAILY 05/11/22 atorvastatin 40 mg tablet 40 mg PO QHS 30 days #30 tabs 05/12/22 ropinirole 1 mg tablet 1 mg PO QHS PRN Restless Leg(S) 05/12/22 Hospital Course Operations None Procedures None Summary of Care Provided Minutes Spent on Discharge: 38 Hospital Course: Per HPI: SHERRY DANIELLE, is a 76 F with a past medical history of 3 aneurysm repairs most recent abdominal aneurysm in May 2021, and hypothyroidism who presented to [facility] 05/11/2022 with an episode of chest pain.? She began having pain at 7 PM that was in her upper chest and resolved with nitro and presented to the ED.? In the ED she was loaded with aspirin and received IV fluid.? Troponin negative x2 and EKG no significant ST changes.? She did have a CTA which did not show PE.? Heart score was calculated at 4 and hospitalist consulted for admission.? Patient seen and evaluated with family at bedside.? She endorses she was walking at [facility] earlier this evening and began having pain that was across the upper parts of her chest and was somewhat of a aching and heavy pain and she felt like she was slightly sweaty and short of breath this lasted for 15 minutes.? It had gone away with nitroglycerin.? Is never had this pain before and the stress test was 4 years ago.? She denies any other complaints recently or at this time. Hospital Course: 1. Atypical chest pain?76-year-old female who was at [facility] when she developed chest pain for a few minutes which resolved with nitroglycerin. She does not have a history of coronary artery disease or stent placement but was felt to be high risk in the ER so was admitted. I discussed with her that she would not be getting an echo or a stress test today and that that would happen tomorrow she states that her chest pain is completely resolved and she has not had any more episodes even with activity around the room and felt that she could go home. I discussed with her the risks and benefits of discharge and she expressed understanding and would like to go home today. I will discharge her with some Lipitor given the cardiac risk, she is already on aspirin and metoprolol. Blood pressures have been stable and troponins have been negative without any EKG changes. 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 Of note there was some concern for PE so CTA of the chest was done which was negative for any intrathoracic pathology. 2. GERD, hypothyroidism are all chronic medical conditions which complicates her care. Her home medications were continued where appropriate Physical Exam Narrative General: Alert, Oriented x3, Cooperative, No apparent distress HEENT: Atraumatic, PERRLA, EOMI, Normocephalic Oral: Moist Mucosa Neck: Supple, No JVD Lungs: Clear to auscultation, Normal air movement, No rhonchi, No wheeze, No rales Cardiovascular: Regular rate, Regular Rhythm, Normal S1, Normal S2, murmur Abdomen: Soft, Non Tender, Non-Distended, No Hepato-splenomegaly Extremities: No edema, Capillary Refill Less than 3 Seconds Skin: No rashes, No breakdown Musculoskeletal: No Tenderness to Palpation of Joints or Extremities Neurological: Cranial nerves II-XII grossly intact, Motor Exam 5/5 strength throughout, Sensory exam intact to light touch and pain Psych/Mental Status: Normal Affect, Appropriate Weight / BMI Weight Weight: 220 lb 10.923 oz Body Mass Index (BMI) 35.6 ABG / Lab / Microbiology Data Result Diagrams: 05/12/22 06:15 05/12/22 06:15 Laboratory: Laboratory Results - last 24 hr 05/11/22 19:00: WBC 14.9 H, RBC 4.24, Hgb 11.9 L, Hct 37.6, MCV 88.7, MCH 28.1, MCHC 31.6 L, RDW Std Deviation 44.5 H, RDW Coeff of Gopi 13.8, Plt Count 264, MPV 10.9, Immature Gran % (Auto) 0.300, Neut % (Auto) 48.3, Lymph % (Auto) 44.3 H, [place] % (Auto) 5.2, Eos % (Auto) 1.3, Baso % (Auto) 0.6, Absolute Neuts (auto) 7.2, Absolute Lymphs (auto) 6.58 H, Nucleated RBC % 0, Differential Comment SCANNED, Reactive Lymphocytes RARE 05/11/22 19:00: Sodium 140, Potassium 3.8, Chloride 108 H, Carbon Dioxide 23.0, Anion Gap 9, BUN 27 H, Creatinine 1.43 H, Estim Creat Clear Calc 30.84, Est GFR (MDRD) Af Amer 46 L, Est GFR (MDRD) Non-Af 38 L, BUN/Creatinine Ratio 18.9, Glucose 133 H, Calcium 9.4, Troponin I High Sens 7 05/11/22 21:21: Troponin I High Sens 7 05/12/22 01:16: Troponin I High Sens 6 05/12/22 06:15: WBC 10.9, RBC 3.89 L, Hgb 10.8 L, Hct 35.0 L, MCV 90.0, MCH 27.8, MCHC 30.9 L, RDW Std Deviation 45.2 H, RDW Coeff of Gopi 13.9, Plt Count 202, MPV 10.7, Immature Gran % (Auto) 0.500, Neut % (Auto) 54.7, Lymph % (Auto) 35.8, [place] % (Auto) 7.1, Eos % (Auto) 1.5, Baso % (Auto) 0.4, Absolute Neuts (auto) 6.0, Absolute Lymphs (auto) 3.91, Nucleated RBC % 0 05/12/22 06:15: PT 14.8, INR 1.2 05/12/22 06:15: Sodium 141, Potassium 4.2, Chloride 112 H, Carbon Dioxide 22.0, Anion Gap 7, BUN 27 H, Creatinine 1.17 H, Estim Creat Clear Calc 37.70, Est GFR (MDRD) Af Amer 58 L, Est GFR (MDRD) Non-Af 48 L, BUN/Creatinine Ratio 23.1 H, Glucose 99, Calcium 8.7, Total Bilirubin 0.40, AST 11 L, ALT 11 L, Alkaline Phosphatase 72, Total Protein 7.7, Albumin 3.0 L, Globulin 4.7 H, Albumin/Globulin Ratio 0.6 L, Triglycerides 90, Cholesterol 158, LDL Cholesterol 94, VLDL Cholesterol 18, HDL Cholesterol 46, TSH 2.66 Radiography Diagnostic Testing: Radiology Impression Chest CTA 05/11/22 21:50 IMPRESSION: Negative for PE. Previous median sternotomy with surgical repair of ascending thoracic aortic aneurysm. Fusiform dilatation of the distal ascending thoracic aorta, aortic arch and descending thoracic aorta, with endoluminal stent in place. No evidence for leakage. Findings of mild pulmonary emphysema and minimal bronchitis. No pneumonia. Electronically Signed: Phillip Monsalve MD at 22:25 EST , D/C Instructions Discharge Diet: Low fat / Low cholesterol Call your doctor if you observe: Fever of 101 or Higher, Shortness of breath, Dizziness, Fainting spells, Swelling in the ankles, Chest pain and Increased palpitations (irregular heartbeat) Meaningful Use Info Meaningful Use Diagnoses (Choose all that apply): None applicable Discharge Plan Admission Admit Date/Time: 05/11/22 23:20 Attending Provider: Lorenzo Gabriel Primary Care Provider: Artur Steven Consulting Providers: Faith Redmond Discharge Orders/Prescriptions Prescriptions: New atorvastatin 40 mg Tablet 40 mg PO QHS 30 Days Qty: 30 0RF Continued levothyroxine 75 MCG tablet 75 mcg PO DAILY aspirin 81 MG tablet,chewable 81 mg PO DAILY@0800 metoprolol tartrate 25 MG tablet 25 mg PO DAILY amlodipine 5 mg tablet 5 mg PO DAILY Label Comments: TAKE 1 & 1/2 (ONE & ONE-HALF) TABLETS BY MOUTH ONCE DAILY omeprazole 20 mg capsule,delayed release(DR/EC) 20 mg PO DAILY Label Comments: TAKE 1 CAPSULE BY MOUTH ONCE DAILY 30 MINUTES BEFORE BREAKFAST gabapentin 100 mg capsule 100 mg PO DAILY Label Comments: TAKE 1 CAPSULE BY MOUTH EVERY 8 HOURS ropinirole 1 mg tablet 1 mg PO QHS PRN (Reason: Restless Leg(S)) Label Comments: TAKE 1 TABLET BY MOUTH NIGHTLY NEEDED FOR RESTLESS LEGS Referrals / Follow Up: Artur Steven MD [Primary Care Provider] - Within 1 Week Disposition Disposition (needs filled in before D/C Order can be placed): Home, Self Care Charges/Coding Visit Charges Inpatient E&M: 68494 Disch Hosp >30min
--- NOTE | 2022-05-12 12:49 | EKG12_ITS ---
Test Reason : AM EKG Blood Pressure : / mmHG Vent. Rate : 067 BPM Atrial Rate : 067 BPM P-R Int : 182 ms QRS Dur : 090 ms QT Int : 422 ms P-R-T Axes : 064 022 088 degrees QTc Int : 445 ms Normal sinus rhythm Normal ECG When compared with ECG of 12-MAY-2022 12:55, MANUAL COMPARISON REQUIRED, DATA IS UNCONFIRMED Confirmed by ANGELA MARTIN, DARLENE ([id number]), art editor ASAD AGUILAR ([id number]) on 05/14/2022 11:06:58 AM Referred By: DENISE Confirmed By:DARLENE MILLER MD
--- NOTE | 2022-05-12 13:45 | PN.HOSP_ITS ---
Subjective Subjective Doing well this morning, denied any chest pain. Was preparing to be discharged home as she did not want a wait until tomorrow to have a stress test when she had another episode of lightheadedness, dizziness, nausea and diaphoresis. No significant chest pain but her blood pressure did drop into the 70s systolic wi th prompt recovery. EKG was taken immediately and had no signs of ischemia Objective Data Objective Data Vital Signs: Vital Signs Temp Pulse Resp BP Pulse Ox O2 Del Method 97.9 F 69 17 143/53 H 98 Room Air 05/12/22 10:00 05/12/22 10:00 05/12/22 10:00 05/12/22 10:00 05/12/22 10:00 05/12/22 10:00 Oxygen Delivery Method Room Air Weight: 220 lb 10.923 oz Body Mass Index (BMI) 35.6 Intake & Output: Intake and Output for Last 24 Hours 05/11/22 05/12/22 05/13/22 03:59 03:59 03:59 Intake Total 1000 / 1000 Balance 1000 / 1000 Lab / Micro Data Result Diagrams: 05/12/22 06:15 05/12/22 06:15 Labs: Laboratory Results - last 24 hr 05/11/22 19:00: WBC 14.9 H, RBC 4.24, Hgb 11.9 L, Hct 37.6, MCV 88.7, MCH 28.1, MCHC 31.6 L, RDW Std Deviation 44.5 H, RDW Coeff of Gopi 13.8, Plt Count 264, MPV 10.9, Immature Gran % (Auto) 0.300, Neut % (Auto) 48.3, Lymph % (Auto) 44.3 H, [place] % (Auto) 5.2, Eos % (Auto) 1.3, Baso % (Auto) 0.6, Absolute Neuts (auto) 7.2, Absolute Lymphs (auto) 6.58 H, Nucleated RBC % 0, Differential Comment SCANNED, Reactive Lymphocytes RARE 05/11/22 19:00: Sodium 140, Potassium 3.8, Chloride 108 H, Carbon Dioxide 23.0, Anion Gap 9, BUN 27 H, Creatinine 1.43 H, Estim Creat Clear Calc 30.84, Est GFR (MDRD) Af Amer 46 L, Est GFR (MDRD) Non-Af 38 L, BUN/Creatinine Ratio 18.9, Glucose 133 H, Calcium 9.4, Troponin I High Sens 7 05/11/22 21:21: Troponin I High Sens 7 05/12/22 01:16: Troponin I High Sens 6 05/12/22 06:15: WBC 10.9, RBC 3.89 L, Hgb 10.8 L, Hct 35.0 L, MCV 90.0, MCH 27.8, MCHC 30.9 L, RDW Std Deviation 45.2 H, RDW Coeff of Gopi 13.9, Plt Count 202, MPV 10.7, Immature Gran % (Auto) 0.500, Neut % (Auto) 54.7, Lymph % (Auto) 35.8, [place] % (Auto) 7.1, Eos % (Auto) 1.5, Baso % (Auto) 0.4, Absolute Neuts (auto) 6.0, Absolute Lymphs (auto) 3.91, Nucleated RBC % 0 05/12/22 06:15: PT 14.8, INR 1.2 05/12/22 06:15: Sodium 141, Potassium 4.2, Chloride 112 H, Carbon Dioxide 22.0, Anion Gap 7, BUN 27 H, Creatinine 1.17 H, Estim Creat Clear Calc 37.70, Est GFR (MDRD) Af Amer 58 L, Est GFR (MDRD) Non-Af 48 L, BUN/Creatinine Ratio 23.1 H, Glucose 99, Calcium 8.7, Total Bilirubin 0.40, AST 11 L, ALT 11 L, Alkaline Phosphatase 72, Total Protein 7.7, Albumin 3.0 L, Globulin 4.7 H, Albumin/Globulin Ratio 0.6 L, Triglycerides 90, Cholesterol 158, LDL Cholesterol 94, VLDL Cholesterol 18, HDL Cholesterol 46, TSH 2.66 Radiography Diagnostic Testing: Radiology Impression Chest CTA 05/11/22 21:50 IMPRESSION: Negative for PE. Previous median sternotomy with surgical repair of ascending thoracic aortic aneurysm. Fusiform dilatation of the distal ascending thoracic aorta, aortic arch and descending thoracic aorta, with endoluminal stent in place. No evidence for leakage. Findings of mild pulmonary emphysema and minimal bronchitis. No pneumonia. Electronically Signed: Phillip Monsalve MD at 22:25 EST , Physical Exam Narrative General: Alert, Oriented x3, Cooperative, No apparent distress HEENT: Atraumatic, PERRLA, EOMI, Normocephalic Oral: Moist Mucosa Neck: Supple, No JVD Lungs: Clear to auscultation, Normal air movement, No rhonchi, No wheeze, No rales Cardiovascular: Regular rate, Regular Rhythm, Normal S1, Normal S2, murmur Abdomen: Soft, Non Tender, Non-Distended, No Hepato-splenomegaly Extremities: No edema, Capillary Refill Less than 3 Seconds Skin: No rashes, No breakdown Musculoskeletal: No Tenderness to Palpation of Joints or Extremities Neurological: Cranial nerves II-XII grossly intact, Motor Exam 5/5 strength throughout, Sensory exam intact to light touch and pain Psych/Mental Status: Normal Affect, Appropriate Assessment & Plan Assessment/Plan (1) Chest pain: (2) Hypothyroidism: (3) Hypertension: PLAN: Plan 1. Atypical chest pain/HTN/HLD ? She not had any cardiac history in the past and her heart score is a 3-4 ? Troponins are unremarkable and negative ? Repeat EKG was also negative for ischemia ? Given her repeat episode we will plan for stress test as well as an echo in the morning ? We will continue with her home blood pressure medication ? We will start her on Lipitor 2. CKD 3 ? Subtypes unclear ? We will continue to monitor renal function 3. Hypothyroidism ? Stable ? Continue with Synthroid DVT: Heparin Charges/Coding Visit Charges Inpatient E&M: 56725 Subs Hosp L2
[2022-05-12] MEDS: Heparin Injection (Vial) 5,000 UNIT/ML VIAL 5000 UNIT SC ×2 (14:06→21:13)
--- NOTE | 2022-05-12 15:40 | NURSING ---
At 1230 this afternoon patient was going to be discharged. This nurse went to get discharge vitals. BP was 75/53, patient began stating that she was going to throw up, complained of back and chest pain and became sweaty and pale and stated that this is how it started with the previous episode that brought her into the hospital. This nurse notified MD, and obtained EKG. Decision was ultimately made to cancel discharge. Patient is feeling better but very tired, resting in recliner. BP has went up now at 147/76.
[2022-05-12] MEDS: Acetaminophen 325 MG Tablet 650 MG PO (17:54)
[2022-05-12] MEDS: Atorvastatin Calcium 40 MG Tablet PO (21:13)
[2022-05-13 02:31] VITALS: BP 155/63; PULSE 82; RESP 16; TEMP 37.1; O2SAT 96
[2022-05-13] MEDS: Levothyroxine 75 MCG Tablet PO (05:43)
--- NOTE | 2022-05-13 05:55 | EKG12_ITS ---
Test Reason : CP ADMIT Blood Pressure : / mmHG Vent. Rate : 068 BPM Atrial Rate : 068 BPM P-R Int : 136 ms QRS Dur : 096 ms QT Int : 414 ms P-R-T Axes : 044 007 082 degrees QTc Int : 440 ms Normal sinus rhythm Normal ECG When compared with ECG of 11-MAY-2022 19:10, MANUAL COMPARISON REQUIRED, DATA IS UNCONFIRMED Confirmed by ANGELA MARTIN, DARLENE ([id number]), food expeditor ASAD AGUILAR ([id number]) on 05/14/2022 11:09:10 AM Referred By: Confirmed By:DARLENE MILLER MD
--- NOTE | 2022-05-13 09:44 | NURSING ---
pt is off unit for stress test.
--- NOTE | 2022-05-13 10:56 | NURSING ---
pt remains off unit for stress test.
[2022-05-13 11:52] VITALS: BP 145/81; PULSE 71; RESP 18; TEMP 36.7; O2SAT 98
[2022-05-13 12:09] VITALS: BP 142/81; PULSE 71
[2022-05-13] MEDS: Acetaminophen 325 MG Tablet 650 MG PO (12:09)
[2022-05-13] MEDS: Metoprolol Tartrate 25 MG Tablet PO (12:09)
[2022-05-13] MEDS: Pantoprazole Sodium 20 MG Tablet PO (12:10)
[2022-05-13] MEDS: amLODIPine 5 MG Tablet PO (12:10)
[2022-05-13] MEDS: Aspirin 81 MG TAB.CHEW PO (12:10)
[2022-05-13] MEDS: Gabapentin 100 MG Capsule PO (12:14)
--- NOTE | 2022-05-13 13:20 | CASEMGMT ---
RN [facility] COORDINATOR CM to room to meet with patient for initial transition planning/care coordination assessment. RN BERENICE introduced self and role at [facility]. Pt voices understanding and consents to assessment at this time. Pt resting in bed in no distress at this time. [place] Pal, @ bedside and pt agreeable to her being present during assessment. Pt is A/O at this time and answers all questions appropriately. Care providers, pharmacy, and demographics verified/updated at this time. PCP: Dr Blanca Arredondo @ [facility] Specialists: Take Off Worker @ [facility], Dr Villanueva-urology Preferred Pharmacy: [facility] Insurance: ANUPAMA Willits Prescription Benefit: Yes Living Will/HPOA: Has both LW and HCPOA, who is her Alberta pal LNOK: Noahr/Alberta KAMARA. SonZeb Living Arrangements: Lives alone in 2-story home w/basement. Independent w/ADL's and IADL's and manages her own medications. Transportation: Pt states drives self and states no transportation concerns at this time. DME: States has the following DME: grab bars, quad cane Pt states no need for further DME at this time. HHC/SNF: No hx of SNF. Hx of [facility]. Pt denies need for HHC and no needs identified. Pt wishes to return home and states has no concerns with going home at time of discharge. CM to follow for any discharge planning/needs. Pt voices no concerns/needs at this time. Advised pt to ask for CM if any questions/concerns/needs arise. Voices understanding. PLAN: Home Mervat BOYER RN, CM
[2022-05-13] MEDS: Heparin Injection (Vial) 5,000 UNIT/ML VIAL 5000 UNIT SC (13:45)
--- NOTE | 2022-05-13 13:50 | CASEMGMT ---
Patient has a Healthcare Power of Associate Professor Of Psychology and a Healthcare Living Will on file at [facility]. Patient's is listed as patient's POA, but is . Patient's daughter Hilda is the first alternate. Eliza SILVA
[2022-05-13 14:00] VITALS: PULSE 68
[2022-05-13 15:56] VITALS: BP 147/77; PULSE 71; RESP 18; TEMP 36.7; O2SAT 96
--- NOTE | 2022-05-13 16:46 | DCINST_ITS ---
Discharge Instructions Diet Discharge Diet: Low fat / Low cholesterol Activity Discharge Activity: Return to Normal Activity Weight Bearing Status: Weight bearing as tolerated Dressing / Incision Call your doctor if you observe: Fever of 101 or Higher, Shortness of breath, Dizziness, Fainting spells, Swelling in the ankles, Chest pain and Increased palpitations (irregular heartbeat) Follow Up Care Test Results: Test results from this visit will be discussed in further detail at your follow- up appointment, if applicable. Discharge Plan Admission Admit Date/Time: 05/12/22 17:58 Primary Reason for Your Visit: chest pain Attending Provider: Humera Blackman Primary Care Provider: Artur Steven Consulting Providers: Faith Redmond ; Lorenzo Gabriel Instructions Patient Instructions: ED Chest Pain, Uncertain Cause Discharge Orders/Prescriptions Prescriptions: New atorvastatin 40 mg Tablet 40 mg PO QHS 30 Days Qty: 30 0RF Continued levothyroxine 75 MCG tablet 75 mcg PO DAILY aspirin 81 MG tablet,chewable 81 mg PO DAILY@0800 metoprolol tartrate 25 MG tablet 25 mg PO DAILY amlodipine 5 mg tablet 5 mg PO DAILY Label Comments: TAKE 1 & 1/2 (ONE & ONE-HALF) TABLETS BY MOUTH ONCE DAILY omeprazole 20 mg capsule,delayed release(DR/EC) 20 mg PO DAILY Label Comments: TAKE 1 CAPSULE BY MOUTH ONCE DAILY 30 MINUTES BEFORE BREAKFAST gabapentin 100 mg capsule 100 mg PO DAILY Label Comments: TAKE 1 CAPSULE BY MOUTH EVERY 8 HOURS ropinirole 1 mg tablet 1 mg PO QHS PRN (Reason: Restless Leg(S)) Label Comments: TAKE 1 TABLET BY MOUTH NIGHTLY NEEDED FOR RESTLESS LEGS Referrals / Follow Up: Artur Steven MD [Primary Care Provider] - Within 1 Week Disposition Disposition (needs filled in before D/C Order can be placed): Home, Self Care
--- NOTE | 2022-05-13 16:48 | PCM.DC.SUM ---
Providers Date of Admission: 05/12/22 Date of Discharge: 05/13/22 Primary Care Physician: Dr. Artur Steven MD Reason For Visit: CHEST PAIN Diagnosis Discharge Diagnosis (1) Chest pain: Status: Acute Code(s): R07.9 - Chest pain, unspecified (2) Hypothyroidism: Status: Acute Code(s): E03.9 - Hypothyroidism, unspecified (3) Hypertension: Status: Chronic Code(s): I10 - Essential (primary) hypertension Medications at Discharge Home Medications aspirin 81 mg chewable tablet 81 mg PO DAILY@0800 12/27/13 levothyroxine 75 mcg tablet 75 mcg PO DAILY 12/27/13 metoprolol tartrate 25 mg tablet 25 mg PO DAILY 12/27/13 amlodipine 5 mg tablet 5 mg PO DAILY 05/11/22 gabapentin 100 mg capsule 100 mg PO DAILY 05/11/22 omeprazole 20 mg capsule,delayed release 20 mg PO DAILY 05/11/22 atorvastatin 40 mg tablet 40 mg PO QHS 30 days #30 tabs 05/12/22 ropinirole 1 mg tablet 1 mg PO QHS PRN Restless Leg(S) 05/12/22 Hospital Course Operations None Procedures Nuclear stress test Summary of Care Provided Minutes Spent on Discharge: 45 Hospital Course: Patient is a 76-year-old female with a past medical history as outlined including a history of abdominal aneurysm s/p 3 repairs with a recent one being in May 2021 as well as hypothyroidism. She was admitted to the ED on 05/11/2022 with a complaint of chest pain which started around 7 PM on the night of admission. It was in her upper chest with no aggravating or relieving factors. She took nitro to help with the pain. Troponins x2 were negative and EKG showed no acute ST changes. CT of the chest was negative for any evidence of PE. She was admitted and managed for chest pain to rule out ACS. She had a stress test on 06/10/2022 which was negative for any evidence of ischemia. Chest pain resolved and patient did well in the hospital. She remained stable and was discharged home on 05/13/2022. She is follow-up with her primary care doctor within 1-2 weeks. Patient seen and examined prior to discharge. She had no active complaints and wanted to know if she could eat. Her daughter was by her bedside. Review of systems was otherwise negative. Labs and vitals reviewed. Home meds reviewed and reconciled. Physical Exam Const alert, oriented x3 and no apparent distress General Appearance: cooperative and comfortable Orientation / Consciousness: awake Exam Limitations: no limitations HEENT normocephalic, head/scalp atraumatic, hearing grossly normal bilaterally and moist oral mucous membranes Mouth: oral and palatal mucosa normal Eyes PERRL, EOMs intact bilaterally and conjunctivae normal Neck no lymphadenopathy and supple Resp normal respiratory effort, no retractions, no use of accessory muscles and clear to auscultation bilaterally Cardio regular rate, regular rhythm, S1 normal heart sound, S2 normal heart sound and no murmurs GI normal to inspection, nondistended, normoactive bowel sounds, soft to palpation, non-tender and non-distended Extremity normal to inspection, full ROM and no clubbing, cyanosis or edema Skin no rashes or lesions noted and no wounds Neuro oriented x3, CN's II-XII intact bilaterally, moves all extremities and no focal motor deficits Sensorium / Orientation: awake and alert Motor Exam: strength 5/5 throughout Psych affect normal Weight / BMI Weight Weight: 220 lb 10.923 oz Body Mass Index (BMI) 35.6 ABG / Lab / Microbiology Data Result Diagrams: 05/12/22 06:15 05/12/22 06:15 Radiography Diagnostic Testing: Radiology Impression Echocardiogram 05/12/22 00:43 Interpretation Summary Normal LV size. Left ventricular systolic function is normal. Pulmonary artery systolic pressure is 41 mmHg. The estimated ejection fraction is 60 %. Stage 1 diastolic dysfunction. Bioprosthetic aortic valve. Ordering Physician: Faith Redmond Referring Physician: MD Artur Steven Performed By: Karyn Tavarez RCS D/C Instructions Discharge Diet: Low fat / Low cholesterol Discharge Activity: Return to Normal Activity Weight Bearing Status: Weight bearing as tolerated Call your doctor if you observe: Fever of 101 or Higher, Shortness of breath, Dizziness, Fainting spells, Swelling in the ankles, Chest pain and Increased palpitations (irregular heartbeat) Meaningful Use Info Meaningful Use Diagnoses (Choose all that apply): None applicable Discharge Plan Admission Admit Date/Time: 05/12/22 17:58 Primary Reason for Your Visit: chest pain Attending Provider: Humera Blackman Primary Care Provider: Artur Steven Consulting Providers: Faith Redmond ; Lorenzo Gabriel Instructions Patient Instructions: ED Chest Pain, Uncertain Cause Discharge Orders/Prescriptions Prescriptions: New atorvastatin 40 mg Tablet 40 mg PO QHS 30 Days Qty: 30 0RF Continued levothyroxine 75 MCG tablet 75 mcg PO DAILY aspirin 81 MG tablet,chewable 81 mg PO DAILY@0800 metoprolol tartrate 25 MG tablet 25 mg PO DAILY amlodipine 5 mg tablet 5 mg PO DAILY Label Comments: TAKE 1 & 1/2 (ONE & ONE-HALF) TABLETS BY MOUTH ONCE DAILY omeprazole 20 mg capsule,delayed release(DR/EC) 20 mg PO DAILY Label Comments: TAKE 1 CAPSULE BY MOUTH ONCE DAILY 30 MINUTES BEFORE BREAKFAST gabapentin 100 mg capsule 100 mg PO DAILY Label Comments: TAKE 1 CAPSULE BY MOUTH EVERY 8 HOURS ropinirole 1 mg tablet 1 mg PO QHS PRN (Reason: Restless Leg(S)) Label Comments: TAKE 1 TABLET BY MOUTH NIGHTLY NEEDED FOR RESTLESS LEGS Referrals / Follow Up: Artur Steven MD [Primary Care Provider] - Within 1 Week Disposition Disposition (needs filled in before D/C Order can be placed): Home, Self Care Charges/Coding Visit Charges Inpatient E&M: 95869 Disch Hosp >30min
--- NOTE | 2022-05-13 17:46 | STRESSREP ---
Stress Test Report Pharmacologic myocardial perfusion stress test. 76-year-old lady with a history of chest pain Resting EKG demonstrates sinus rhythm with a rate of 74 bpm. Resting blood pressure is 130/76 mmHg. 0.4 mg of regadenoson was infused per usual protocol followed by rapid intravenous saline flush injection. Continuous EKG monitoring was performed. The maximum heart rate was 100 bpm which was 69% of max impacted heart rate the maximum workload was 1 metabolic equivalent. At rest there were no ST or T wave changes noted to suggest ischemia and at peak infusion nonspecific ST changes were noted which did not meet the criteria for ischemia. No clinical angina is noted. The final blood pressure was 124/78 mmHg. Myocardial perfusion protocol. 14.2 mCi of technetium 99m sestamibi was injected at rest. 0.4 mg of regadenoson was infused per usual protocol. At peak infusion 45.0 mCi of technetium 99m sestamibi was injected stress images were obtained stress and rest images were reconstructed and compared in the short axis vertical long and horizontal long axis. Gated images were also obtained. Perfusion SPECT analysis: Review of the stress images demonstrate normal uptake of tracer noted in all areas of the myocardium. The resting images similar demonstrated normal uptake of tracer noted in all areas of the myocardium. No areas of reversibility are noted to suggest ischemia and no previous infarct is noted. Gated SPECT analysis: The gated ejection fraction is 76%. Conclusion: Normal pharmacologic myocardial perfusion stress test. Preserved ejection fraction.
== END 2022-05-13 19:30 | disposition home or self-care (01) | DRG 313 ==
LOC: ED 22:48 → PCU 22:55
PROVIDERS: Admitting Provider Internal Medicine; Emergency Provider Emergency Medicine; PCP Family Medicine; Visit Provider Student in an Organized Health Care Education/Training Program
DX: R07.9 Chest pain, unspecified (principal); E03.9 Hypothyroidism, unspecified; N18.30 Chronic kidney disease, stage 3 unspecified; I12.9 Hypertensive chronic kidney disease with stage 1 through stage 4 chronic kidney disease, or unspecified chronic kidney disease; K21.9 Gastro-esophageal reflux disease without esophagitis; E78.5 Hyperlipidemia, unspecified; R42 Dizziness and giddiness; Z79.82 Long term (current) use of aspirin; R01.1 Cardiac murmur, unspecified; Z79.890 Hormone replacement therapy; Z79.899 Other long term (current) drug therapy; Z95.2 Presence of prosthetic heart valve
CPT/HCPCS: 36415; 71275; 78452; 80048; 80053; 80061; 84443; 84484; 85025; 85610; 93005; 93017; 93306; 94668; 99252; 99285; A9500; J7030; Q9967; A4216; G0463; J2785

== ENCOUNTER 2022-08-08 13:34 | Emergency (ER) | payer MEDICARE, BC, SELFPAY ==
[2022-08-08 13:36] VITALS: BP 189/90; PULSE 66; RESP 14; TEMP 36.2; O2SAT 95; BMI 41.9
[2022-08-08 13:39] VITALS: O2SAT 96
--- NOTE | 2022-08-08 13:51 | RAD_ITS ---
EXAM: XR RIGHT KNEE, 1 OR 2 VIEWS CLINICAL INDICATION: Fall injury with pain. TECHNIQUE: Frontal and/or lateral views of the right knee. COMPARISON: No relevant prior studies available. FINDINGS: BONES/JOINTS: Intact right metallic knee arthroplasty. No acute fracture. No subluxation. Normal alignment. No sclerotic or destructive changes observed. SOFT TISSUES: Unremarkable. No soft tissue swelling or gas. No radiopaque foreign body. RAD/Knee 1 or 2 Views IMPRESSION: 1. No acute fracture or dislocation of the right knee. 2. Intact right metallic knee arthroplasty. Electronically Signed: Frankie Smiley MD at 15:57 EDT ,
--- NOTE | 2022-08-08 13:51 | RAD_ITS ---
EXAM: XR LEFT SHOULDER COMPLETE, 2 OR MORE VIEWS CLINICAL INDICATION: Left shoulder pain from fall injury. TECHNIQUE: Two or more views of the left shoulder. COMPARISON: No relevant prior studies available. FINDINGS: BONES/JOINTS: Acute complete fracture across the left humeral neck. The fracture line extends into the greater tubercle and lesser tubercle of the left humeral head. Preservation of the joint space. No sclerotic or destructive changes observed. SOFT TISSUES: Unremarkable. No soft tissue swelling or gas. No radiopaque foreign body. RAD/Shoulder min 2 Views IMPRESSION: Acute complete fracture across the left humeral neck. The fracture line includes the lesser tubercle and the greater tubercle of the left humeral head.. Electronically Signed: Frankie Smiley MD at 15:55 EDT ,
--- NOTE | 2022-08-08 13:55 | EDS_ITS ---
HPI <GENIE Spain - Last Filed: 08/08/22 20:00> HPI - Fall History of Present Illness Chief Complaint: Fall Narrative Narrative: 76-year-old female tripped over her cane in her garage and injured her left shoulder and right knee. No head injury or LOC. She had her cell phone and called her family for assistance and was brought in by EMS. No blood thinners. Denies chest, abdominal, or back pain. PFSH <GENIE Spain - Last Filed: 08/08/22 20:00> [facility], [facility] Medical History (Updated 08/08/22 @ 16:08 by GENIE Spain) Arthritis Heart disease Hypertension Hypertension Hyperthyroidism Hypothyroidism Hypothyroidism Kidney disease Migraines Home Medications aspirin 81 mg chewable tablet 81 mg PO DAILY@0800 heart health 12/27/13 [History Last Taken 12/28/13] levothyroxine 75 mcg tablet 75 mcg PO DAILY thyroid 12/27/13 [History Last Taken 05/02/15 05:00] metoprolol tartrate 25 mg tablet 25 mg PO DAILY blood pressure 12/27/13 [History Last Taken 05/02/15 05:00] amlodipine 5 mg tablet 5 mg PO DAILY blood pressure 05/11/22 [History Last Taken Unknown] gabapentin 100 mg capsule 100 mg PO DAILY nerve pain 05/11/22 [History Last Taken Unknown] omeprazole 20 mg capsule,delayed release 20 mg PO DAILY reflux 05/11/22 [History Last Taken Unknown] atorvastatin 40 mg tablet 40 mg PO QHS 30 days #30 tabs 05/12/22 [Rx Last Taken Unknown] ropinirole 1 mg tablet 1 mg PO QHS PRN Restless Leg(S) 05/12/22 [History Last Taken Unknown] hydrocodone-acetaminophen 5-325mg 5mg-325mg 1 tab PO Q6H PRN PRN Pain 3 days #12 TABLETS 08/08/22 [Rx Last Taken Unknown] ondansetron 4 mg disintegrating tablet 4 mg PO Q8H PRN PRN Nausea #12 tabs 08/08/22 [Rx Last Taken Unknown] Allergy/AdvReac Type Severity Reaction Status Date / Time amoxicillin [Amoxicillin] Allergy Unknown Verified 08/08/22 13:36 codeine Allergy Nausea Verified 08/08/22 13:36 Penicillins Allergy Hives Verified 08/08/22 13:36 Family History Other Thyroid disorder Surgical History History of cholecystectomy History of hysterectomy Status post transcatheter aortic valve replacement Social History Smoking Status: Former smoker alcohol intake: never substance use type: does not use what type of physical activity do you participate in: walking frequency: 1-2 times per week ROS <GENIE Spain - Last Filed: 08/08/22 20:00> ROS ED ROS Narrative Constitutional: Negative for fever, chills, malaise. CVS: Negative for chest pain, syncope. Respiratory: Negative for shortness of breath. GI: Negative for abdominal pain, nausea, vomiting. Neuro: Negative for motor/sensory dysfunction. Musc: Positive for left shoulder and right knee pain, trauma. EXAM <GENIE Spain - Last Filed: 08/08/22 20:00> Physical Exam Narrative Exam Narrative: CONST: Patient sitting in no acute distress. EYES: Normal inspection. Head: Normocephalic, atraumatic. NECK: Normal inspection. No midline spinal tenderness, no step off or crepitus. RESP: No respiratory distress, CTAB. No tenderness of the clavicle or chest wall. CVS: Regular rate and rhythm, no murmur, no gallop. ABD: Soft and nontender, no guarding or rebound, nondistended. Back: Normal inspection, no midline spinal tenderness, no step off or crepitus. SKIN: Color normal, no rash, warm, dry, intact. EXTREMITIES: Tender over the left proximal humerus and patient holding shoulder adducted, cannot ROM. No tenderness of the rest of her upper extremities. Normal sensation in axillary median ulnar and radial distributions, distal strength and sensation intact, 2+ radial pulses. BLLE: No shortening or rotation, healed right knee arthroplasty incision. She has swelling and tenderness of the right knee with normal extension. 2+ DP pulses. NEURO: Oriented x4. PSYCH: Normal affect. Const Vital Signs: 08/08/22 13:36 08/08/22 13:39 08/08/22 16:18 Temperature 97.1 F L Temperature Source Temporal Pulse Rate 66 Respiratory Rate 14 Respiratory Effort Normal Non-Labored Blood Pressure 189/90 H 212/78 H Blood Pressure Mean 123 122 Pulse Ox 95 96 Oxygen Delivery Method Room Air Room Air 08/08/22 16:58 Temperature Temperature Source Pulse Rate Respiratory Rate Respiratory Effort Blood Pressure 190/82 H Blood Pressure Mean Pulse Ox Oxygen Delivery Method <Dr. Chandu Frank DO - Last Filed: 08/08/22 20:22> Physical Exam Const Vital Signs: 08/08/22 13:36 08/08/22 13:39 08/08/22 16:18 Temperature 97.1 F L Temperature Source Temporal Pulse Rate 66 Respiratory Rate 14 Respiratory Effort Normal Non-Labored Blood Pressure 189/90 H 212/78 H Blood Pressure Mean 123 122 Pulse Ox 95 96 Oxygen Delivery Method Room Air Room Air 08/08/22 16:58 Temperature Temperature Source Pulse Rate Respiratory Rate Respiratory Effort Blood Pressure 190/82 H Blood Pressure Mean Pulse Ox Oxygen Delivery Method [facility] <GENIE Spain - Last Filed: 08/08/22 20:00> [facility] Narrative Medical decision making narrative: 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 She had no head injury and has no external signs of head trauma. Her exam is notable for holding her left arm abducted and tenderness over the left shoulder. She also has right knee effusion and tenderness but normal extension. Upper and lower extremity distal pulses are intact. X-ray of the left shoulder shows acute proximal humerus fracture. Right knee x-ray shows hardware intact with no fracture or dislocation. After pain medication patient was able to stand and ambulate. She states she typically uses a cane in her right hand and feels comfortable going home. She can follow-up with her established orthopedic doctor and I prescribed Underwood. Patient was discharged in stable condition. Differential: Knee and shoulder contusions versus fracture Radiography Diagnostic Testing: Clinical Impression(s) from Imaging Studies Knee X-Ray 08/08/22 13:51 IMPRESSION: 1. No acute fracture or dislocation of the right knee. 2. Intact right metallic knee arthroplasty. Electronically Signed: Frankie Smiley MD at 15:57 EDT , Shoulder X-Ray 08/08/22 13:51 IMPRESSION: Acute complete fracture across the left humeral neck. The fracture line includes the lesser tubercle and the greater tubercle of the left humeral head.. Electronically Signed: Frankie Smiley MD at 15:55 EDT , ED attending interpretation of right knee shows hardware intact with no fracture or dislocation. ED attending interpretation of left shoulder shows acute proximal humerus fracture. No dislocation. <Dr. 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 She had no head injury and has no external signs of head trauma. Her exam is notable for holding her left arm abducted and tenderness over the left shoulder. She also has right knee effusion and tenderness but normal extension. Upper and lower extremity distal pulses are intact. X-ray of the left shoulder shows acute proximal humerus fracture. Right knee x-ray shows hardware intact with no fracture or dislocation. After pain medication patient was able to stand and ambulate. She states she typically uses a cane in her right hand and feels comfortable going home. She can follow-up with her established orthopedic doctor and I prescribed Underwood. Patient was discharged in stable condition. Differential: Knee and shoulder contusions versus fracture This patient was seen with a PA[employer] Individually assessed they patient including history and physical. I have reviewed everything on the chart that is available and agree with the documentation provided by the PA[employer] including discussion about the assessment, treatment plan, discussion, and return precautions. P atient with mechanical fall. She has left shoulder pain and right knee pain. X-rays were obtained of these areas and on my interpretation is no acute fracture or subluxation of the knee, however the right shoulder has a humeral neck fracture. Patient will be put in a sling and given follow-up with orthopedics. She is given pain control for home. Return precautions discussed. Radiography Diagnostic Testing: Clinical Impression(s) from Imaging Studies Knee X-Ray 08/08/22 13:51 IMPRESSION: 1. No acute fracture or dislocation of the right knee. 2. Intact right metallic knee arthroplasty. Electronically Signed: Frankie Smiley MD at 15:57 EDT , Shoulder X-Ray 08/08/22 13:51 IMPRESSION: Acute complete fracture across the left humeral neck. The fracture line includes the lesser tubercle and the greater tubercle of the left humeral head.. Electronically Signed: Frankie Smiley MD at 15:55 EDT , Discharge Plan Triage Chief Complaint: Fall ED Midlevel Provider: Verena Schmitz ED Provider: Chandu Frank Dx/Rx/DC Orders Clinical Impression: Contusion of knee, right, Closed fracture of left proximal humerus Instructions: Bruises (Contusions), ED Fracture, Shoulder Prescriptions: New hydrocodone-acetaminophen 5-325 mg tablet 1 tab PO Q6H PRN PRN (Reason: Pain) 3 Days Qty: 12 0RF ondansetron 4 mg tablet,disintegrating 4 mg PO Q8H PRN PRN (Reason: Nausea) Qty: 12 0RF No Action levothyroxine 75 MCG tablet 75 mcg PO DAILY aspirin 81 MG tablet,chewable 81 mg PO DAILY@0800 metoprolol tartrate 25 MG tablet 25 mg PO DAILY amlodipine 5 mg tablet 5 mg PO DAILY Label Comments: TAKE 1 & 1/2 (ONE & ONE-HALF) TABLETS BY MOUTH ONCE DAILY omeprazole 20 mg capsule,delayed release(DR/EC) 20 mg PO DAILY Label Comments: TAKE 1 CAPSULE BY MOUTH ONCE DAILY 30 MINUTES BEFORE BREAKFAST gabapentin 100 mg capsule 100 mg PO DAILY Label Comments: TAKE 1 CAPSULE BY MOUTH EVERY 8 HOURS ropinirole 1 mg tablet 1 mg PO QHS PRN (Reason: Restless Leg(S)) Label Comments: TAKE 1 TABLET BY MOUTH NIGHTLY NEEDED FOR RESTLESS LEGS atorvastatin 40 mg Tablet 40 mg PO QHS 30 Days Qty: 30 0RF Primary Care Provider: Care Physician,No Primary Referrals: Artur Steven MD [Non-Staff] - Ferny Berger MD [Med Staff - Active Staff] - Activity Restrictions/Additional Instructions: Please follow-up with your orthopedic doctor as you need seen for your left shoulder. You can see whoever took care of your knee or I provided a phone number for Dr. Berger above. Disposition Disposition: Home, Self Care Discharge Date/Time: 08/08/22 16:59
[2022-08-08] MEDS: Ondansetron 4 MG/2 ML Vial IV ×2 (14:52→16:22)
[2022-08-08] MEDS: Morphine 4 MG/ML Syringe IV ×2 (14:52→16:22)
[2022-08-08 16:18] VITALS: BP 212/78
[2022-08-08] MEDS: Ketorolac 15 MG/ML Vial IV (16:21)
[2022-08-08 16:58] VITALS: BP 190/82
== END 2022-08-08 16:59 | disposition home or self-care (01) ==
PROVIDERS: Emergency Provider Student in an Organized Health Care Education/Training Program; Visit Provider Student in an Organized Health Care Education/Training Program
DX: S42.292A Other displaced fracture of upper end of left humerus, initial encounter for closed fracture (principal); Z87.891 Personal history of nicotine dependence; M25.461 Effusion, right knee; S80.01XA Contusion of right knee, initial encounter; I10 Essential (primary) hypertension; W01.0XXA Fall on same level from slipping, tripping and stumbling without subsequent striking against object, initial encounter
CPT/HCPCS: 73030; 73560; 96374; 96375; 96376; 99284; A4216; J2405